=== PATIENT | female | born 1930 | race Caucasian/White ===

== ENCOUNTER 2016-11-12 15:46 | Emergency (ER) | payer MEDICARE, OTHER ==
[2016-11-12] MEDS ORDERED: IOPAMIDOL 300 (61%) 150 ML VIAL IV ONE (15:47)
[2016-11-12 16:30] LABS: ABSOLUTE NEUTROPHIL COUNT 4.8 K/mm3 (1.8-7.7); BASO % 0.4 % (0.2-1.0); EOS # 0.2 (0.0-0.5); EOS % 1.8 % (0.9-2.9); HEMATOCRIT 39.3 % (37.0-47.0); HEMOGLOBIN 13.1 gm/l (12.0-16.0); IMM NEUT% 0.4 % (0-1); LYMPH # 2.6 (1.0-4.8); LYMPH % 30.4 % (15-45); MEAN CELL VOLUME 85.4 fl (81.0-99.0); MEAN CORPUSCULAR HEMOGLOBIN 28.5 pg (27.0-31.0); MEAN CORPUSCULAR HGB CONC 33.3 g/dl (33.0-37.0); MEAN PLATELET VOLUME 11.1 fl (7.4-10.4); MONO # 0.9 (0.0-0.8); PLATELET COUNT 194 K/mm3 (130-400); RED CELL DISTRIBUTION WIDTH 14.1 % (11.5-14.5)
[2016-11-12 16:37] LABS: ALB/GLOB RATIO 1.2 (>1.0); ALBUMIN 3.8 gm/dL (3.5-5.7)
--- NOTE | 2016-11-12 17:19 | CT ---
CT ABDOMEN AND PELVIS WITH CONTRAST HISTORY: Epigastric pain. TECHNIQUE: Following intravenous administration of 1 25 mL Isovue-300, contiguous axial images were acquired from the lung bases to the ischial tuberosities. Oral contrast was not administered. COMPARISON: 04/01/2015. FINDINGS: MAMMARY SOFT TISSUES: Evidence of prior left-sided mastectomy. LUNG BASES: No gross airspace consolidation or pleural effusion. LIVER: Stable low-attenuation of lateral segment of left hepatic lobe. SPLEEN: No focal lesion. STOMACH: Small hiatal hernia. No abnormal dilatation. PANCREAS: No focal lesion. ADRENAL GLANDS: Stable bilateral adrenal nodularity, unchanged since March 2015 KIDNEYS: Small exophytic lesion of the right upper pole measuring 9 mm in size, compared to 12 mm on prior imaging, perhaps related to hyperdense cyst. No collecting system dilatation is noted. GALLBLADDER: Findings of cholelithiasis and a junctional fold. Minor wall thickening is suggested. BOWEL: Apparent right-sided colonic lipoma. Findings of sigmoid diverticulosis without features of diverticulitis. No abnormal small bowel dilatation identified. Nonspecific fold thickening of a few loops of jejunum, enteritis is possible. APPENDIX: Normal gas-filled appendix. PELVIC ORGANS: Status post hysterectomy without adnexal mass effect. Hyperdense material seen at the neck of the bladder of uncertain significance; this could relate to proteinaceous material within a cystic lesion, enhancing lesion, or postprocedural change. This focus measures 2.6 x 1.8 x 1.3 cm in size. FREE FLUID: No gross free fluid identified. ABDOMINOPELVIC LYMPH NODES: No abnormally enlarged lymph nodes identified. ABDOMINAL AORTA: Normal caliber. OSSEOUS STRUCTURES: Evidence of prior hip arthroplasty. Disc degeneration mild anterolisthesis at L4-5. No destructive lesions. Disc degeneration with moderately severe canal stenosis at the L3-4 and L4-5 levels. IMPRESSION: 1. Nonspecific fold thickening of a few loops of jejunum, proximal enteritis is possible. 2. Features of cholelithiasis with minor gallbladder wall thickening, recommended sonography to exclude changes of cholecystitis. 3. Nonobstructive appearance of bowel. 4. Hyperattenuating 2.6 cm focus of the pelvis the region of the neck of the bladder; this could relate to proteinaceous cyst or even postprocedural change. Notably, this is previously seen on an May 2012 CT examination and is grossly unchanged. 5. Colonic diverticulosis without diverticulitis. Lumbar spondylosis with moderate lower lumbar canal stenosis. 6. Colonic lipoma, fluid within the colon compatible with diarrhea. 7. Status post cholecystectomy and prior right hip arthroplasty. Status post left mastectomy. 8. Small hiatal hernia. Findings discussed with Dr. Israel of the Emergency Medicine clinical service on 11/12/2016 at 1716 hours.
--- NOTE | 2016-11-12 17:22 | RAD ---
CHEST 2 VIEWS HISTORY: Chest pain. Frontal and lateral chest radiographs dated 11/12/2016. COMPARISON: 11/08/2014 FINDINGS: FOCAL AIRSPACE OPACITY: No gross airspace consolidation. PLEURAL EFFUSION: None. CARDIOMEDIASTINAL SILHOUETTE: Nonenlarged. PNEUMOTHORAX: None identified. Minor apical fibrotic change. OSSEOUS STRUCTURES: No grossly destructive lesions. POSTPROCEDURAL CHANGE: Findings compatible with prior left mastectomy and axillary dissection. IMPRESSION: No acute cardiopulmonary process noted. Status post mastectomy and left axillary dissection.
[2016-11-12 18:26] LABS: URINE BILIRUBIN NEGATIVE (NEGATIVE); URINE BLOOD NEGATIVE (NEGATIVE); URINE GLUCOSE (UA) NEGATIVE (NEGATIVE); URINE LEUKOCYTE ESTERASE 2+ (NEGATIVE); URINE NITRITE NEGATIVE (NEGATIVE); URINE PROTEIN NEGATIVE (NEGATIVE); URINE UROBILINOGEN NORMAL (0-1 mg/dl)
[2016-11-12 18:36] LABS: URINE AMORPHOUS SEDIMENT FEW; URINE APPEARANCE CLOUDY; URINE BACTERIA 1+; URINE COLOR YELLOW; URINE EPITHELIAL CELLS 0-2 /hpf; URINE RBC 0 /hpf
--- NOTE | 2016-11-13 08:15 | US ---
LIMITED ABDOMINAL ULTRASOUND HISTORY: Right upper quadrant pain. Limited sonography of the right upper quadrant performed. FINDINGS: GALLBLADDER LENGTH: 7.2 cm. GALLBLADDER WALL THICKNESS: 2.6 mm. GALLBLADDER CONTENT: Echogenic 1.5 cm gallstone. 4 mm echogenic focus of the gallbladder fundus which may reflect polyp or tumefactive sludge. SONOGRAPHIC ALTAMIRANO'S SIGN: Not elicited. COMMON BILE DUCT CALIBER: 4 mm. REGIONAL FREE FLUID: None. IMPRESSION: Evidence of cholelithiasis. 4 mm polyp versus tumefactive sludge the gallbladder fundus. No biliary dilatation or gallbladder wall thickening. Preliminary report relayed to the Emergency Medicine medical service by Dr. Harkins on 11/12/2016 at 1904 hours.
== END 2016-11-12 20:26 | disposition home or self-care (01) ==
LOC: ED 15:46
DX: R10.13 Epigastric pain (principal); R74.8 Abnormal levels of other serum enzymes; I10 Essential (primary) hypertension
CPT/HCPCS: 83690; 85025; 82550; 82553; 87086; 80053; 84484; 81001; 71020; 74177; 76705; 99284 ×2; 93005; Q9967

== ENCOUNTER 2017-02-16 05:18 | Day surgery (SDC) | payer MEDICARE, OTHER ==
[2017-02-16] MEDS ORDERED: LACTATED RINGERS 1,000 ML ONE (05:37)
[2017-02-16] MEDS ORDERED: IV START KIT ONE (05:37)
[2017-02-16] MEDS ORDERED: CEFAZOLIN SODIUM 2 GRAM PREMIX 100 ML IV PRN (05:45)
[2017-02-16] MEDS ORDERED: CEFAZOLIN SODIUM 2 GRAM PREMIX 100 ML IV ONE (06:33)
[2017-02-16] MEDS ORDERED: LIDOCAINE 2% (MULTI DOSE) 10 ML VIAL ONE (06:51)
[2017-02-16] MEDS ORDERED: ROCURONIUM BROMIDE 10 MG/ML DOSE IV ONE ×10 (06:51→06:55)
[2017-02-16] MEDS ORDERED: PROPOFOL 20 ML IV ONE (06:51)
[2017-02-16] MEDS ORDERED: BUPIVACAINE 0.5% W/EPI SDV 30 ML VIAL ONE (06:54)
[2017-02-16] MEDS ORDERED: SODIUM CHLORIDE 0.9% 50 ML ONE (06:54)
[2017-02-16] MEDS ORDERED: IOPAMIDOL 300 (61%) 30 ML SDV ONE ×2 (06:54→08:27)
[2017-02-16] MEDS ORDERED: FENTANYL 250 MCG/5 ML AMP ONE (06:55)
[2017-02-16] MEDS ORDERED: MIDAZOLAM HCL 1 MG/ML 2ML VIAL ONE (06:55)
[2017-02-16] MEDS ORDERED: HYDROMORPHONE HCL 1 MG/ML SYRINGE IV PRN (08:02)
[2017-02-16] MEDS ORDERED: PROMETHAZINE HCL 25 MG/ML VIAL IM PRN (08:02)
[2017-02-16] MEDS ORDERED: NALOXONE HCL 0.4 MG/ML VIAL IV PRN (08:02)
[2017-02-16] MEDS ORDERED: LABETALOL HCL 5 MG/ML 20ML VIAL IV PRN (08:02)
[2017-02-16] MEDS ORDERED: ONDANSETRON 4 MG/2ML 2 ML VIAL IV PRN ×2 (08:02→09:50)
[2017-02-16] MEDS ORDERED: ATROPINE SULFATE 0.4 MG/1 ML VIAL IV PRN (08:02)
[2017-02-16] MEDS ORDERED: HYDRALAZINE HCL 20 MG/1 ML VIAL IV PRN (08:02)
[2017-02-16] MEDS ORDERED: DEXAMETHASONE SOD PHOS 4 MG/1 ML VIAL ONE (08:05)
[2017-02-16] MEDS ORDERED: LACTATED RINGERS 1,000 ML IV SCH ×2 (08:15→09:50)
--- NOTE | 2017-02-16 08:52 | RAD ---
EXAMINATION:CHOLANGIOGRAM-OPERATIVE TECHNIQUE: Fluoroscopic assistance was provided for Dr.knee ogden. Fluoroscopy time: 61.5 seconds Number of images: 5 FINDINGS: Operative cholangiography exhibits opacification of the biliary system. There is no contrast extravasation. No filling defect is seen in the distal common bile duct. Contrast is noted within the proximal duodenum. IMPRESSION: Fluoroscopic assistance provided as described above. Normal operative cholangiogram.
[2017-02-16] MEDS ORDERED: FENTANYL 100 MCG/2 ML VIAL ONE (09:26)
[2017-02-16] MEDS ORDERED: ONDANSETRON 4 MG/2ML 2 ML VIAL ONE (09:26)
[2017-02-16] MEDS: FENTANYL 100 MCG/2 ML VIAL IV PRN ×2 (09:28→09:37)
[2017-02-16] MEDS ORDERED: MORPHINE SULFATE 2 MG/ML SYRINGE IV PRN (09:50)
[2017-02-16] MEDS ORDERED: DIPHENHYDRAMINE HCL 50 MG/1 ML VIAL IV PRN (09:50)
[2017-02-16] MEDS ORDERED: ACETAMINOPHEN 325 MG TABLET PO PRN (09:50)
[2017-02-16] MEDS ORDERED: OXYCODONE HCL 5 MG TABLET PO PRN (09:50)
[2017-02-16 10:06] VITALS: BMI 27.0
[2017-02-16] MEDS ORDERED: PUMP TUBING ONE (10:43)
[2017-02-16] MEDS: CHLORTHALIDONE 50 MG TABLET PO SCH (10:57)
[2017-02-16] MEDS: TRIMETH PO SCH ×2 (10:58→21:41)
[2017-02-16] MEDS: SULFAMETH PO SCH ×2 (10:58→21:41)
--- NOTE | 2017-02-16 11:27 | OP ---
Sheron Hardwick [id number] DATE OF PROCEDURE: 02/16/2017 PREOPERATIVE DIAGNOSIS: Chronic cholecystitis and cholelithiasis. POSTOPERATIVE DIAGNOSIS: Chronic cholecystitis and cholelithiasis. PROCEDURE: Laparoscopic cholecystectomy with intraoperative cholangiogram. SURGEON: Vinicio Alejandro MD. [employer] WORKER: Lilliana. ANESTHESIA: Kobzeff, General endotracheal. INDICATIONS: This is an 86-year-old female who has a long history of problems with her gallbladder. She has ultrasound evidence of gallstones. There has been some concern of a possible gallbladder abnormality since her teens. She presents now for a laparoscopic resection. DESCRIPTION: With informed consent she was taken to the operating room where she was laid supine on the operating room table. General endotracheal anesthetic was administered. The abdomen was prepped and draped in the usual fashion. Local anesthetic was administered below the umbilicus. Incision was made. Fascia was grasped with Delia clamps and divided with curved Jacobs scissors. Sutures of Vicryl were placed on the fascial edges and Kelly port was placed. A pneumoperitoneum was created. Local anesthetic was administered in the mid epigastrium and along the right lateral abdominal wall. Incisions were made. Five millimeter ports were placed. We ended up switching out the 5 mm port in the epigastric region to an 11 mm port later in the case for the 10 mm Hem-O-Wade clips. The fundus of the gallbladder was grasped and retracted cephalad. The fundus was quite floppy and folded on itself. There were adhesions along the length of the gallbladder and these taken down with electrocautery and some blunt dissection. We dissected down to the infundibulum, this was retracted laterally. We identified arterial structure on the anterior surface of the gallbladder, this was clipped and divided, eventually dissecting further down toward the cystic structures we identified the posterior aspect of the same artery, this was clipped and transected. Overall the cystic duct seemed fairly large. I dissected it completely free so that a critical view was obtained. I was very confident that we were identifying the cystic duct and gallbladder junction. It was too large for a Endoclip and so a Hem-O-Wade clip was placed. The duct was partially transected. The cholangiogram catheter was placed and a cholangiogram was obtained showing flow of contrast into the duodenum without filling defect. Initial images did appear to have an air bubble that resolved. Contrast was seen refluxing in the hepatic ducts. The catheter was removed and a Hem-O-Wade clip was placed on the cystic duct and was completely transected. The gallbladder was then taken off the liver bed using electrocautery. Once it was placed within an Endocatch bag and removed through the umbilical port site. The right upper quadrant was irrigated. We had adequate hemostasis. The ports were removed and the pneumoperitoneum was evacuated. The infraumbilical fascial defect was closed with figure of eight sutures of 0 Vicryl. A single stitch of 0 Vicryl was also placed in the epigastric fascial defect. All skin wounds were irrigated and closed with 4-0 Monocryl. Mastisol and Steri-Strips were placed. Sterile dressings were applied. She tolerated the procedure and was taken to the recovery room in stable condition. Note was made that needle, instrument, and lap counts were reported as correct at the time of closure. JOB: [id number] CC: Dr. Divya Rowe
[2017-02-16] MEDS ORDERED: MORPHINE SULFATE 10 MG/ML SYRINGE IV PRN (11:42)
[2017-02-16] MEDS ORDERED: MORPHINE SULFATE 4 MG/ML SYRINGE IV PRN (11:42)
[2017-02-17 08:04] VITALS: BP 140/71
[2017-02-17] MEDS: TRIMETH PO SCH (08:46)
[2017-02-17] MEDS: SULFAMETH PO SCH (08:46)
[2017-02-17] MEDS: CHLORTHALIDONE 50 MG TABLET PO SCH (08:46)
--- NOTE | 2017-02-18 17:46 | SURGPATH ---
[facility] [address] [place] [id number] Patient Name: KATIE LEIVA MR#: [id number] : 1930 Gender: F Specimen #: [id number] Collected: 02/16/2017 Received: 02/17/2017 Reported: 02/18/2017 Submitting Phys: NEHEMIAH HARGROVE Copy To Phys: ROLO BUTT [facility] Clinical History / Pre-Operative Diagnosis: Cholelithiasis, chronic cholecystitis Specimen Source / Surgical Procedure Performed: Gallbladder Interpretation: GALLBLADDER, CHOLECYSTECTOMY: - MILD CHRONIC CHOLECYSTITIS. - CHOLELITHIASIS. - NO EVIDENCE OF MALIGNANCY. Electronically Signed Out Tomas Gutierrez M.D., Ph.D. Gross Description: The specimen is received in formalin labeled with the patient's name and "gallbladder". The specimen consists of a 9.0 x 2.5 x 2.5 cm intact gallbladder. The mucosa is green and velvety. There is an ovoid yellow 1.5 cm granular stone. A. representative government relations including cystic duct HECTOR Millan Microscopic Description: Examination of sections from the gallbladder shows gallbladder wall with a mild chronic inflammatory cell infiltrate associated with scattered Rokitansky-Aschoff sinuses. There is no evidence of malignancy. 1: [id number] K80.10
== END 2017-02-17 12:09 | disposition home or self-care (01) ==
LOC: SDC 05:18 → MS 09:50 → SDC 02-17 12:09
PROVIDERS: ATTEND Surgery
PROC: 0FT44ZZ Resection of Gallbladder, Percutaneous Endoscopic Approach (ICD-10-PCS; principal; 2017-02-16)
PROC: BF141ZZ Fluoroscopy of Gallbladder, Bile Ducts and Pancreatic Ducts using Low Osmolar Contrast (ICD-10-PCS; 2017-02-16)
DX: K80.10 Calculus of gallbladder with chronic cholecystitis without obstruction (principal)
CPT/HCPCS: 47563; 74300; 94010; A9270 ×4; J3010 ×2; J1100; J2250; J2405 ×2; J7120 ×2; J7030; Q9967 ×2; J2001; J0690